=== PATIENT | male | born 1950 | race Caucasian/White ===

== ENCOUNTER 2016-12-06 13:50 | Inpatient (IN) | payer MEDICARE, OTHER ==
[2016-12-06 15:03] LABS: Add Diff/Slide Review? Slide Review Added; Comments Flag Yes; Hematocrit 39 % (42-52); Hemoglobin 12.3 g/dl (14.0-18.0); Mean Corpuscular HGB Conc 32 g/dl (31-36); Mean Corpuscular Hemoglobin 28 pg (27-31); Mean Corpuscular Volume 89 fL (80-94); Mean Platelet Volume 8 um3 (7.4-10.4); Red Blood Count 4.35 10^6/ul (4.0-5.4); Red Cell Distribution Width 16 % (10.5-15); White Blood Count 12.7 10^3/ul (3.5-10.8)
[2016-12-06 15:18] LABS: Albumin 3.4 g/dL (3.2-5.2); Calcium 9.2 mg/dL (8.6-10.3); EGFR African American 76.4 (>60); EGFR Non-African American 59.4 (>60); Globulin 3.2 g/dL (2-4); Potassium 4.2 mmol/L (3.5-5.0); Total Bilirubin 0.3 mg/dL (0.2-1.0); Total Protein 6.6 g/dL (6.4-8.9)
[2016-12-06 15:28] LABS: Troponin I 0.06 ng/mL (<0.04)
[2016-12-06] MEDS ORDERED: Aspirin EC TAB* 325 MG PO ONE (15:41)
--- NOTE | 2016-12-06 17:16 | RAD ---
INDICATION: Shortness of breath. COMPARISON: There are no prior studies available for comparison. TECHNIQUE: Dual-energy PA and lateral views of the chest were obtained. FINDINGS: The patient is status post anatomy. The heart is upper limits of normal in size. There is mild prominence of the interstitial markings. No significant focal infiltrate is seen. There is flattening of the diaphragms suggestive of chronic obstructive pulmonary disease. There is a nodular density which projects over the right midlung which appears to be least partially calcified measuring 1.1 cm in size. No pleural effusion is seen. IMPRESSION: 1. 1.1 CM PULMONARY NODULE. RECOMMEND A NONCONTRAST CT OF THE CHEST FOR FURTHER EVALUATION. 2. PROMINENCE OF THE INTERSTITIAL MARKINGS CONSISTENT WITH EITHER CHRONIC INTERSTITIAL CHANGE OR MILD CONGESTIVE HEART FAILURE. 3. FINDINGS SUGGESTIVE OF COPD.
[2016-12-06] MEDS ORDERED: Dextrose 50% Syringe 50 ML* 25 GM/50 ML SYRINGE IV PUSH PRN (17:20)
[2016-12-06] MEDS ORDERED: Furosemide IV* 10 MG/ML VIAL (40 MG) IV ONE (18:13)
[2016-12-06] MEDS: Insulin LISPRO* 1 UNITS UNIT SUBCUT SCH ×2 (19:14→19:21)
[2016-12-06] MEDS: Clopidogrel TAB* 75 MG PO SCH (19:21)
[2016-12-06] MEDS: Atorvastatin* 40 MG TAB PO SCH (19:21)
[2016-12-06] MEDS: Insulin GLARGINE(*) 1 UNITS UNIT SUBCUT SCH (20:55)
[2016-12-06] MEDS: guanFACINE TAB* 1 MG PO SCH (20:55)
[2016-12-06] MEDS: Carvedilol TAB* 25 MG PO SCH (20:55)
[2016-12-06] MEDS: Heparin VIAL(*) 5000 UNITS/ML VIAL (FIVE THOUSAND) SUBCUT SCH (20:56)
--- NOTE | 2016-12-07 04:40 | HP ---
HISTORY AND PHYSICAL: DATE OF ADMISSION: 12/06/16 CHIEF COMPLAINT: Shortness of breath. HISTORY OF PRESENT ILLNESS: The patient is a resident of [place], visiting his daughter. Mr. Vasquez is a 66-year-old male with a past medical history of morbid obesity , hypertension, CAD, status post CABG x2, JORDAN, on CPAP, diabetes, who presents to the hospital with shortness of breath that began this morning. The patient is up visiting from [place], has been here little over a month or so. Two weeks ago, he developed a productive cough and was diagnosed at Urgent Care with bronchitis. He received steroids and antibiotics with improvement in his symptoms, although still has a persistent productive cough at this time. However, overall he feels that he has been getting better. This morning, he woke up around 6 a.m. and felt short of breath, this was while on his CPAP machine, which is very unusual. Over the course in the morning, the shortness of breath persisted. He denies any chest pain. He states that when he stood up , he felt uneasy, but denies lightheadedness or dizziness. He went to Urgent Care and his blood pressure was 110/54, which he states is low for him. He is usually in the 130s to 140s. He states that this shortness of breath felt like a previous episode of pneumonia that he had in the past. The patient has not noticed any calf tenderness. No more swelling in his lower extremities than usual. Denies any recent tick bites or rash. No significant changes in medications recently. In the emergency department, the patient was found to have a mildly elevated troponin as well as EKG that showed Mobitz type 1 second- degree heart block. We were consulted to consider the patient for admission. PAST MEDICAL HISTORY: 1. Hypertension. 2. Diabetes. 3. Morbid obesity. 4. JORDAN, on CPAP. 5. CAD, status post CABG x2. 6. History of calcified fatty tissue in his right lung. PAST SURGICAL HISTORY: CABG x2. HOME MEDICATIONS: 1. [place]-3 fatty acids 900 mg by mouth daily. 2. Tresiba 58 units subcutaneous daily. 3. Insulin aspart 8 units subcutaneous with meals. 4. Jardiance 25 mg by mouth daily. 5. Trulicity 1.25 mg subcutaneous weekly. 6. Aspirin 325 mg by mouth nightly. 7. Metformin 1000 mg by mouth two times daily. 8. Ezetimibe 10 mg by mouth daily. 9. Plavix 75 mg by mouth nightly. 10. Guanfacine 2 mg by mouth at bedtime. 11. Atorvastatin 40 mg by mouth nightly. 12. Potassium chloride 20 mEq by mouth daily. 13. Amlodipine 10 mg by mouth daily. 14. Losartan 100 mg by mouth daily. 15. Lasix 40 mg by mouth daily. 16. Carvedilol 25 mg by mouth 3 times daily. ALLERGIES: The patient reports no known drug allergies. FAMILY HISTORY: The patient could not recall. SOCIAL HISTORY: The patient has never smoked cigarettes. Very rare alcohol use. No illicit drug use. Lives with his in [place]. REVIEW OF SYSTEMS: Negative except as noted in the HPI. PHYSICAL EXAMINATION GENERAL: The patient is pleasant, middle-aged, morbidly obese man sitting in bed in no apparent distress. VITAL SIGNS: On admission, temperature 97.8, heart rate of 54, respiratory rate of 16, O2 saturation 97% on room air, blood pressure 146/59. HEENT: Head normocephalic, atraumatic. Eyes: Pupils equal, round, and reactive to light and accommodation. Anicteric sclerae. ENT: Moist mucous membranes. No cervical adenopathy. LUNGS: Clear to auscultation bilaterally, although breath sounds are a bit diminished at the bases. CARDIOVASCULAR: Irregular rhythm. S1 and S2 present. No murmurs, gallops or rubs. ABDOMEN: Obese, soft, ventral hernia, nontender, nondistended. Bowel sounds are positive. EXTREMITIES: Patient has pitting edema to the knees bilaterally. NEURO: The patient is alert and oriented x3. No focal neurological deficits. SKIN: Warm, dry, and well perfused. No rashes noted. DIAGNOSTIC STUDIES/LAB DATA: White blood cell count of 12.7, hemoglobin of 12.3, hematocrit of 39, platelets 227. Sodium 139, potassium 4.2, chloride of 103, carbon dioxide of 29, BUN of 28, creatinine of 1.22, glucose of 185. Lactic acid of 1.6. LFTs within normal limits. Troponin of 0.06. EKG, personally reviewed, shows Mobitz type I second-degree AV block. There are no prior EKGs to compare to. No acute ST changes noted. Chest x-ray, personally reviewed, shows known right mid lung nodule, no clear infiltrates. ASSESSMENT AND PLAN: Shortness of breath, troponin elevation and second-degree AV block, Mobitz type 1, in a 66-year-old male with a past medical history of hypertension, diabetes, coronary artery disease, status post coronary artery bypass surgery x2, obstructive sleep apnea, on CPAP. 1. Shortness of breath. May be secondary to cardiac etiology particularly with the patient's heart block, which seems new. He states he has had last EKG in February that was normal, although it is unclear if this is specifically related to the chest pain. We will rule out ischemic causes by continuing to trend the patient's troponins. We will check TSH. We will also get an echocardiogram and a nuclear cardiac stress test in the morning. Spoke briefly with Dr. Singh, but did not formally consult. She recommended scaling back the patient's beta-jen a bit and we will decrease his mid-day dose to 12.5 mg of Coreg beginning tomorrow as he missed his dose today. We will continue for now on aspirin and Plavix. Chest x-ray did not show any specific signs of pneumonia, perhaps a bit of fluid overload. Will give an additional dose of Lasix through the IV, check BNP. White blood cell count is only minimally elevated. I do not think the patient requires any antibiotic therapy at this time. Deep venous thrombosis and pulmonary embolism seems unlikely this long after their trip. They did drive up with an RV, which the patient said he was ambulatory throughout the trip. The patient denies any recent tick bites and has no rashes. 2. Hypertension. Continue Coreg at above dosing, amlodipine, guanfacine, and home losartan. 3. Diabetes. The patient is on a number of non-formulary medications. We will put him on a reduced dose of Lantus at 30 units for now with sliding scale insulin with meals as he will be n.p.o. after midnight for stress test. 4. History of coronary artery disease. Continue beta-jen, aspirin, Plavix, and statin. 5. DVT prophylaxis. Heparin subcu. 6. Code status. The patient is a full code. TIME SPENT: Total time spent on this admission 45 minutes, with over half the time spent [id number] with the patient in counseling and coordinating care. [id number]/[facility] #: [id number] [facility]ITAL[facility]
[2016-12-07] MEDS: Heparin VIAL(*) 5000 UNITS/ML VIAL (FIVE THOUSAND) SUBCUT SCH ×3 (04:55→20:42)
[2016-12-07 05:27] LABS: Hematocrit 38 % (42-52); Hemoglobin 12.2 g/dl (14.0-18.0); Mean Corpuscular HGB Conc 32 g/dl (31-36); Mean Corpuscular Hemoglobin 29 pg (27-31); Mean Corpuscular Volume 89 fL (80-94); Mean Platelet Volume 8 um3 (7.4-10.4); Red Blood Count 4.27 10^6/ul (4.0-5.4); Red Cell Distribution Width 15 % (10.5-15)
[2016-12-07 05:46] LABS: BUN/Creatinine Ratio 24.1 (8-20); Calcium 8.9 mg/dL (8.6-10.3); EGFR African American 84.4 (>60); EGFR Non-African American 65.6 (>60); HDL Cholesterol 30.8 mg/dL; Potassium 3.7 mmol/L (3.5-5.0)
[2016-12-07 06:25] LABS: Troponin I 0.19 ng/mL (<0.04)
[2016-12-07] MEDS ORDERED: Perflutren Lipid Microsphere* 3 ML VIAL ONE (07:59)
--- NOTE | 2016-12-07 09:26 | ECHO ---
Patient: RANCHO OLIVARES [facility] Rec#: [id number] : 1950 Date: 12/07/2016 Age: 66y Height: 175.26 cm / 69.0 in Weight: 122.47 kg / 269.9 lbs Sex: M BSA: 2.35 Room#: 443 Admit Date#: 12/06/2016 Type: Inpatient Referring: VANESSA IRVING MD Reading: Jason Herrera MD Supervisor [employer] Handling: Dodie PetersenRDCS,RDMS Transthoracic Echocardiogram Indication: Heart block BP: 114/54 HR: 72 Rhythm: NSR Findings History: CAD, CABGx2, HTN, DM, JORDAN Technical Comments: The study quality is fair. The study is technically limited due to poor acoustic windows. Completed 0840 Left Ventricle: The left ventricular chamber size is normal. Mild concentric left ventricular hypertrophy is observed. There is a focal wall motion abnormality present. There is mildly decreased left ventricular systolic function. The estimated ejection fraction is 45-50%. Abnormal left ventricular diastolic function is observed. The mid anteroseptal, mid anterior, and apical anterior wall segments are hypokinetic (score 2). Overall wallmotion score index is 2.00 Left Atrium: The left atrium is mild to moderately dilated. Right Ventricle: The right ventricular chamber size and systolic function are within normal limits. The right ventricle wall thickness is mildly increased. Right Atrium: The right atrium is mildly dilated. Aortic Valve: The aortic valve is trileaflet. The aortic valve leaflets are mildly thickened. There is aortic annular calcification. There is trace to mild aortic regurgitation. There is no evidence of aortic stenosis. Mitral Valve: There is mitral annular calcification. The mitral valve leaflets are mildly thickened. There is moderate mitral regurgitation. There is mild mitral stenosis. Tricuspid Valve: The tricuspid valve leaflets are normal. There is mild to moderate tricuspid regurgitation. There is evidence of mild pulmonary hypertension. Pulmonic Valve: The pulmonic valve structure is not well visualized. There is no evidence of pulmonic regurgitation. Pericardium: There is no significant pericardial effusion. Aorta: There is mild dilatation of the ascending aorta. There is no dilatation of the aortic arch. There is mild dilatation of the aortic root. Pulmonary Artery: The main pulmonary artery is not well visualized. Venous: The inferior vena cava is not visualized. Contrast: Definity was used to optimize study. A total of 4 ml was used Summary: There was not any prior study for comparison. Conclusions Mild concentric left ventricular hypertrophy is observed. The estimated ejection fraction is 45-50%. There is mildly decreased left ventricular systolic function. The mid anteroseptal, mid anterior, and apical anterior wall segments are hypokinetic (score 2). The right ventricular chamber size and systolic function are within normal limits. The aortic valve leaflets are mildly thickened. There is trace to mild aortic regurgitation. There is moderate mitral regurgitation. There is mild to moderate tricuspid regurgitation. There is evidence of mild pulmonary hypertension. There is no significant pericardial effusion. Measurements Name Value Normal Range RVIDd (AP) 2D 2.8 cm (0.9 - 2.6) RVDdMajor (2D) 4 cm (2.2 - 4.4) RAd ISD 4CH 4.8 cm (3.4 - 4.9) RA (A4C)W 4.8 cm (2.9 - 4.6) IVSd (2D) 1.2 cm (0.6 - 1) LVPWd (2D) 1.3 cm (0.6 - 1) LVIDd (2D) 5.3 cm (3.6 - 5.4) LVIDs (2D) 4.1 cm - LV FS (2D) 23 % (25 - 45) Aortic Annulus 2 cm (1.4 - 2.6) Ao root diameter (2D) 4.1 cm (2.1 - 3.5) Ascending Ao 3.7 cm (2.1 - 3.4) Aortic arch 2.7 cm (1.8 - 3.4) LA dimension (AP) 2D 4.5 cm (2.3 - 3.8) LAd ISD 4CH 5.3 cm (2.9 - 5.3) LA ISD 4CH W 4.5 cm (2.5 - 4.5) Name Value Normal Range LA ESV SP 4CH (A/L) 121.84 ml - LA ESV SP 2CH (A/L) 79.28 ml - LA ESV BP (A/L) 102.62 ml - LA ESV BP (A/L) index 44 ml/m2 - LA ESV SP 4CH (MOD) 114.96 ml - LA ESV SP 2CH (MOD) 75.69 ml - Name Value Normal Range MV E-wave Vmax 1.3 m/sec - MV deceleration time 177 msec - MV A-wave Vmax 0.4 m/sec - MV E:A ratio 3.3 ratio - LV septal e' Vmax 0.05 m/sec - LV lateral e' Vmax 0.06 m/sec - LV E:e' septal ratio 26 ratio - LV E:e' lateral ratio 22 ratio - Name Value Normal Range AV Vmax 1.3 m/sec - AV VTI 25.4 cm - AV peak gradient 7 mmHg - AV mean gradient 3.3 mmHg - LVOT Vmax 0.9 m/sec - LVOT VTI 18.4 cm - LVOT peak gradient 3.2 mmHg - LVOT mean gradient 1.6 mmHg - CHHAYA Vmax 0.7 m/sec - Name Value Normal Range MV Vmax 1.4 m/sec - MV VTI 30.4 cm - MV peak gradient 8 mmHg - MV mean gradient 2.8 mmHg - MV PHT 62 msec - MR Vmax 5.6 m/sec - MR VTI 186 cm - MR flow (PISA) 82.3 ml/sec - MR ERO 14 cm2 - MR PISA radius 0.6 cm - MR alias Vmax 34 cm/sec - MVA (PHT) 3.5 cm2 - Name Value Normal Range TR Vmax 3.1 m/sec - TR peak gradient 38 mmHg - RAP 3 mmHg - RVSP 41 mmHg - Name Value Normal Range PV Vmax 0.8 m/sec - PV peak gradient 2.6 mmHg - Wallmotion BAS Not Seen BA Not Seen BAL Not Seen JAIR Not Seen BI Not Seen BIS Not Seen MAS Hypokinetic MA Hypokinetic MAL Not Seen MIL Not Seen IL Not Seen MIS Not Seen Not Seen AA Hypokinetic AL Not Seen AI Not Seen APEX Not Seen
--- NOTE | 2016-12-07 10:04 | ED ---
Sakina Moore Thomas, scribed for Alvin Watters MD on 12/06/16 at 1534 . Shortness of Breath - HPI Summary HPI Summary: The pt is a 66 y/o M presenting to the ED c/o SOB that began a few days ago but woke up with significantly worsened SOB this AM at 05:00 when he woke up. His SOB is worsened when he is standing and seems to be resolved when he is seated. Pt additionally c/o cough (onset 1 month), nausea (this AM, resolved in ED), insecure on my feet. Pt denies CP and vomiting. PMHx: DM, PNA, HTN, hernia, sleep apnea, ragweed allergy. PSHx: CABG x2 (1997, 2005). SHx: no smoking, occasional alcohol, no illicit drugs. FHx: HTN. A month ago, he was diagnosed with bronchitis and prescribed a course of antibiotics. He finished this course, but a cough lingered. He normally lives in [place] and is visiting his daughter in [place] for the next month. - History of Current Complaint Chief Complaint: EDShortnessOfBreath Time Seen by Provider: 12/06/16 15:30 Hx Obtained From: Patient Onset/Duration: Gradual Onset, Lasting Days - a few days, Still Present, Worse Since - this AM at 05:00 Dyspnea At: Exertion Aggrevating Factors: Movement - especially standing up Alleviating Factors: Nothing Associated Signs & Symptoms: Cough (Nonproductive) - Allergy/Home Medications Allergies/Adverse Reactions: Allergies Allergy/AdvReac Type Severity Reaction Status Date / Time No Known Allergies Allergy Verified 12/06/16 15:41 Home Medications: Home Medications Aspirin TAB* [Aspirin 325 MG TAB*] 325 mg PO QPM 12/06/16 [History Confirmed ] Atorvastatin* [Lipitor*] 40 mg PO QPM 12/06/16 [History Confirmed 12/06/16] Carvedilol TAB* [Coreg TAB*] 25 mg PO TID 12/06/16 [History Confirmed 12/06/16] Clopidogrel TAB* [Plavix TAB*] 75 mg PO QPM 12/06/16 [History Confirmed 12/06/16 ] Dulaglutide [Trulicity] 1.25 mg SC SEE INSTRUCTIONS 12/06/16 [History Confirmed 12/06/16] Empagliflozin [Jardiance] 25 mg PO DAILY 12/06/16 [History Confirmed 12/06/16] Ezetimibe TAB* [Zetia TAB*] 10 mg PO DAILY 12/06/16 [History Confirmed 12/06/16] Furosemide TAB* [Lasix TAB*] 40 mg PO DAILY 12/06/16 [History Confirmed 12/06/16 ] Insulin Aspart [Novolog Flexpen] 8 unit SC SEE INSTRUCTIONS 12/06/16 [History Confirmed 12/06/16] Insulin Degludec [Tresiba Flextouch] 58 unit SC DAILY 12/06/16 [History Confirmed 12/06/16] Losartan TAB* [Cozaar TAB*] 100 mg PO DAILY 12/06/16 [History Confirmed 12/06/16 ] [place]-3 Fatty Acids [Fish Oil] 900 mg PO DAILY 12/06/16 [History Confirmed 12/06] Potassium Chlor TAB* [Klor Con ER TAB*] 20 meq PO DAILY 12/06/16 [History Confirmed 12/06/16] amLODIPine TAB* [Norvasc 5 mg TAB*] 10 mg PO DAILY 12/06/16 [History Confirmed 12/06/16] guanFACINE TAB* [Tenex TAB*] 2 mg PO BEDTIME 12/06/16 [History Confirmed ] metFORMIN* [Glucophage 1000 MG TAB *] 1,000 mg PO BID 12/06/16 [History Confirmed 12/06/16] PMH/Surg Hx/FS Hx/Imm Hx Previously Healthy: No Endocrine/Hematology History: Reports: Hx Diabetes, Other Endocrine/ Hematological Disorders - Hx ragweed allergy Cardiovascular History: Reports: Hx Hypertension Respiratory History: Reports: Hx Pneumonia, Hx Sleep Apnea GI History: Reports: Other GI Disorders - Hx umbilical hernia - Surgical History Surgery Procedure, Year, and Place: CABG x2 (1997, 2005) Infectious Disease History: No Infectious Disease History: Denies: Traveled Outside the [place] in Last 30 Days - Family History Known Family History: Positive: Hypertension - Social History Alcohol Use: Occasionally Substance Use Type: Reports: None Hx Tobacco Use: No Review of Systems Constitutional: Negative Negative: Fever Eyes: Negative ENT: Negative Cardiovascular: Negative Negative: Chest Pain Positive: Shortness Of Breath - onset a few days, worsened this AM at 05:00, worsened with exertion and standing, Cough - a month Positive: Nausea - this AM, resolved in the ED. Negative: Vomiting Genitourinary: Negative Musculoskeletal: Negative Skin: Negative Neurological: Other - POS: "insecure on my feet" Psychological: Normal All Other Systems Reviewed And Are Negative: Yes Physical Exam - Summary Physical Exam Summary: VITAL SIGNS: Reviewed. GENERAL: ~Patient is a well-developed and nourished obese male who is lying comfortable in the stretcher. ~Patient is not in any acute respiratory distress. HEAD AND FACE: No signs of trauma. ~No ecchymosis, hematomas or skull depressions. No sinus tenderness. EYES: PERRLA, EOMI x 2, No injected conjunctiva, no nystagmus. EARS: Hearing grossly intact. Ear canals and tympanic membranes are within normal limits. MOUTH: Oropharynx within normal limits. NECK: Supple, trachea is midline, no adenopathy, no JVD, no carotid bruit, no c- spine tenderness, neck with full ROM. CHEST: Symmetric, no tenderness at palpation LUNGS: Clear to auscultation bilaterally. No wheezing or crackles. CVS: Regular rate and rhythm, S1 and S2 present, no murmurs or gallops appreciated. ABDOMEN: Umbilical hernia. Soft, non-tender. No signs of distention. No rebound no guarding, and no masses palpated. Bowel sounds are normal. EXTREMITIES: 1+ edema. FROM in all major joints, no cyanosis or clubbing. NEURO: Alert and oriented x 3. No acute neurological deficits. Speech is normal and follows commands. SKIN: Dry and warm Triage Information Reviewed: Yes Vital Signs On Initial Exam: Initial Vitals Temp Pulse Resp BP Pulse Ox 97.8 F 54 16 146/59 97 12/06/16 14:01 12/06/16 14:01 12/06/16 14:01 12/06/16 14:01 12/06/16 14:01 Vital Signs Reviewed: Yes Diagnostics - Vital Signs Vital Signs Temp Pulse Resp BP Pulse Ox 12/06/16 15:21 19 133/48 12/06/16 14:01 97.8 F 54 16 146/59 97 - Laboratory Lab Results: Lab Results 12/06/16 12/06/16 12/06/16 Range/Units 14:55 14:55 14:55 WBC 12.7 H (3.5-10.8) 10^3/ul RBC 4.35 (4.0-5.4) 10^6/ul Hgb 12.3 L (14.0-18.0) g/dl Hct 39 L (42-52) % MCV 89 (80-94) fL MCH 28 (27-31) pg MCHC 32 (31-36) g/dl RDW 16 H (10.5-15) % Plt Count 227 (150-450) 10^3/ul MPV 8 (7.4-10.4) um3 Neut % (Auto) 74.1 (38-83) % Lymph % (Auto) 15.8 L (25-47) % Bradford % (Auto) 8.1 (1-9) % Eos % (Auto) 1.3 (0-6) % Baso % (Auto) 0.7 (0-2) % Absolute Neuts (auto) 9.4 H (1.5-7.7) 10^3/ul Absolute Lymphs (auto) 2.0 (1.0-4.8) 10^3/ul Absolute Monos (auto) 1.0 H (0-0.8) 10^3/ul Absolute Eos (auto) 0.2 (0-0.6) 10^3/ul Absolute Basos (auto) 0.1 (0-0.2) 10^3/ul Absolute Nucleated RBC 0.01 10^3/ul Nucleated RBC % 0.1 Sodium 139 (133-145) mmol/L Potassium 4.2 (3.5-5.0) mmol/L Chloride 103 (101-111) mmol/L Carbon Dioxide 29 (22-32) mmol/L Anion Gap 7 (2-11) mmol/L BUN 28 H (6-24) mg/dL Creatinine 1.22 H (0.67-1.17) mg/dL Est GFR ( Amer) 76.4 (>60) Est GFR (Non-Af Amer) 59.4 (>60) BUN/Creatinine Ratio 23.0 H (8-20) Glucose 185 H (70-100) mg/dL Lactic Acid 1.6 (0.5-2.0) mmol/L Calcium 9.2 (8.6-10.3) mg/dL Total Bilirubin 0.30 (0.2-1.0) mg/dL AST 14 (13-39) U/L ALT 16 (7-52) U/L Alkaline Phosphatase 71 (34-104) U/L Troponin I 0.06 H* (<0.04) ng/mL Total Protein 6.6 (6.4-8.9) g/dL Albumin 3.4 (3.2-5.2) g/dL Globulin 3.2 (2-4) g/dL Albumin/Globulin Ratio 1.1 (1-3) Result Diagrams: 12/07/16 05:10 12/07/16 05:10 Lab Statement: Any lab studies that have been ordered have been reviewed, and results considered in the medical decision making process. - EKG 14:27 Cardiac Rate: Bradycardia - 42 BPM EKG Interpretation: Second degree block which is a Wenkebach. Course/Dx - Course Assessment/Plan: The pt is a 66 y/o M presenting to the ED c/o SOB that began a few days ago but woke up with significantly worsened SOB this AM at 05:00 when he woke up. His SOB is worsened when he is standing and seems to be resolved when he is seated. Pt additionally c/o cough (onset 1 month), nausea ( this AM, resolved in ED), insecure on my feet. Pt denies CP and vomiting. PMHx : DM, PNA, HTN, umbilical hernia, sleep apnea, ragweed allergy. PSHx: CABG x2 ( 1997, 2005). SHx: no smoking, occasional alcohol, no illicit drugs. FHx: HTN. A month ago, he was diagnosed with bronchitis and prescribed a course of antibiotics. He finished this course, but a cough lingered. He normally lives in [place] and is visiting his daughter in [place] for the next month. Test results show WBC 12.7 with slight anemia. The patient has renal failure, hyperglycemia to 185, troponin to 0.06. An EKG shows a second degree block which is a Wenkebach. CXR revealed 1. 1.1 CM PULMONARY NODULE. RECOMMEND A NONCONTRAST CT OF THE CHEST FOR FURTHER. EVALUATION. 2. PROMINENCE OF THE INTERSTITIAL MARKINGS CONSISTENT WITH EITHER CHRONIC INTERSTITIAL. CHANGE OR MILD CONGESTIVE HEART FAILURE. 3. FINDINGS SUGGESTIVE OF COPD. The patient reports that he has never had abnormal EKGs despite multiple CABGs. At this point, the patient is stable and does not complain of any pain or SOB. I discussed care with Dr. Miles, who accepts the patient for admission. The patient is hemodynamically stable and alert and orientated x3. - Diagnoses Differential Diagnosis/HQI/PQRI: Positive: CHF, HI Provider Diagnoses: Second degree AV block, Dyspnea on exertion - Physician Notifications Discussed Care of Patient With: Romaine Miles Time Discussed With Above Provider: 15:49 Instructed by Provider To: Other - Discussed patient care. Dr. Miles, hospitalist, will accept the patient for admission. Discharge - Discharge Plan Condition: Fair Disposition: ADMITTED TO [facility] The documentation as recorded by the Sakina ibarra Thomas accurately reflects the service I personally performed and the decisions made by me, Alvin Watters MD.
[2016-12-07] MEDS: Losartan TAB* 25 MG PO SCH (11:18)
[2016-12-07] MEDS: Ezetimibe TAB* 10 MG PO SCH (11:19)
[2016-12-07] MEDS: Furosemide TAB* 40 MG PO SCH (11:19)
[2016-12-07] MEDS: Carvedilol TAB* 25 MG PO SCH ×2 (11:19→20:41)
[2016-12-07] MEDS: amLODIPine TAB* 5 MG PO SCH (11:19)
[2016-12-07] MEDS: Potassium Chlor TAB* 10 MEQ TAB.ER PO SCH (11:20)
[2016-12-07] MEDS: Insulin LISPRO* 1 UNITS UNIT SUBCUT SCH ×6 (11:39→17:24)
[2016-12-07] MEDS: OMEGA-3 FATTY ACIDS (NF) 1,000 MG CAP PO SCH (11:41)
--- NOTE | 2016-12-07 13:30 | PN ---
Subjective Date of Service: 12/07/16 Interval History: No more SOB since admission. No new c/o. He always sleeps in a recliner, has not changed the amount of head elevation. He brought his CPAP with him and was using it when I entered his room after lunch. He denies dietary indiscretion. He does not weigh himelf. He has not noticed any edema. Objective Active Medications: Amlodipine Besylate (Norvasc Tab*) 10 mg PO DAILY [facility] Last Admin: 12/07/16 11:19 Dose: 10 mg Aspirin (Aspirin Tab*) 325 mg PO QPM [facility] Atorvastatin Calcium (Lipitor*) 40 mg PO QPM [facility] Last Admin: 12/06/16 19:21 Dose: 40 mg Carvedilol (Coreg Tab*) 25 mg PO BID [facility] Last Admin: 12/07/16 11:19 Dose: 25 mg Carvedilol (Coreg Tab*) 12.5 mg PO 1400 [facility] Clopidogrel Bisulfate (Plavix Tab*) 75 mg PO QPM [facility] Last Admin: 12/06/16 19:21 Dose: 75 mg Dextrose (D50w Syringe 50 Ml*) 12.5 gm IV PUSH .FOR FS < 60 - SS PRN PRN Reason: FS < 60 Ezetimibe (Zetia Tab*) 10 mg PO DAILY [facility] Last Admin: 12/07/16 11:19 Dose: 10 mg Fish Oil (Fish Oil (Nf)) 900 mg PO DAILY [facility] PRN Reason: Protocol Last Admin: 12/07/16 11:41 Dose: Not Given Furosemide (Lasix Tab*) 40 mg PO DAILY [facility] Last Admin: 12/07/16 11:19 Dose: 40 mg Guanfacine HCl (Tenex Tab*) 2 mg PO BEDTIME [facility] Last Admin: 12/06/16 20:55 Dose: 2 mg Heparin Sodium (Porcine) (Heparin Vial(*)) 5,000 units SUBCUT Q8HR [facility] Last Admin: 12/07/16 04:55 Dose: 5,000 units Insulin Glargine (Lantus(*)) 30 units SUBCUT Q24H [facility] Last Admin: 12/06/16 20:55 Dose: 30 unit Insulin Human Lispro (Humalog*) 0 - 15 units SUBCUT AC [facility] PRN Reason: Protocol Last Admin: 12/07/16 11:39 Dose: Not Given Insulin Human Lispro (Humalog*) 0 units SUBCUT [facility] PRN Reason: Protocol Last Admin: 12/07/16 11:39 Dose: Not Given Losartan Potassium (Cozaar Tab*) 100 mg PO DAILY [facility] Last Admin: 12/07/16 11:18 Dose: 100 mg Potassium Chloride (Klor Con Er Tab*) 20 meq PO DAILY [facility] Last Admin: 12/07/16 11:20 Dose: 20 meq Vital Signs 12/06/16 12/06/16 12/06/16 17:05 17:15 17:30 Temperature Pulse Rate 80 56 105 Respiratory 27 17 18 Rate Blood Pressure 115/48 122/46 (mmHg) O2 Sat by Pulse 94 93 92 Oximetry 12/06/16 12/06/16 12/06/16 18:00 18:25 20:20 Temperature 98.5 F Pulse Rate 76 47 72 Respiratory 18 22 Rate Blood Pressure 112/48 132/54 (mmHg) O2 Sat by Pulse 94 98 Oximetry 12/06/16 12/07/16 12/07/16 20:22 00:09 03:43 Temperature 98.6 F 98.1 F 98.5 F Pulse Rate 132 39 71 Respiratory 16 20 16 Rate Blood Pressure 110/50 112/53 114/54 (mmHg) O2 Sat by Pulse 94 93 92 Oximetry 12/07/16 12/07/16 07:11 11:16 Temperature 97.5 F 98.0 F Pulse Rate 73 69 Respiratory 16 14 Rate Blood Pressure 120/61 128/63 (mmHg) O2 Sat by Pulse 94 94 Oximetry Oxygen Devices in Use Now: CPAP/BiPAP Appearance: Alert, in recliner chair. In good spirits. Looks comfortable. Ears/Nose/Mouth/Throat: Clear Oropharnyx, Mucous Membranes Moist Neck: NL Appearance and Movements; NL JVP, No Thyroid Enlargement, Masses Respiratory: Symmetrical Chest Expansion and Respiratory Effort, Clear to Auscultation, Clear to Percussion Abdominal: NL Sounds; No Tenderness; No Distention, No Hepatosplenomegaly, - Extremities: No Clubbing, Cyanosis, - - support hose in place Skin: No Rash or Ulcers, No Nodules or Sclerosis Neurological: Alert and Oriented x 3, NL Sensation Result Diagrams: 12/07/16 05:10 12/07/16 05:10 Additional Lab and Data: Lab Results 12/06/16 12/06/16 12/06/16 Range/Units 14:55 14:55 14:55 WBC 12.7 H (3.5-10.8) 10^3/ul RBC 4.35 (4.0-5.4) 10^6/ul Hgb 12.3 L (14.0-18.0) g/dl Hct 39 L (42-52) % MCV 89 (80-94) fL MCH 28 (27-31) pg MCHC 32 (31-36) g/dl RDW 16 H (10.5-15) % Plt Count 227 (150-450) 10^3/ul MPV 8 (7.4-10.4) um3 Neut % (Auto) 74.1 (38-83) % Lymph % (Auto) 15.8 L (25-47) % [place] % (Auto) 8.1 (1-9) % Eos % (Auto) 1.3 (0-6) % Baso % (Auto) 0.7 (0-2) % Absolute Neuts (auto) 9.4 H (1.5-7.7) 10^3/ul Absolute Lymphs (auto) 2.0 (1.0-4.8) 10^3/ul Absolute Monos (auto) 1.0 H (0-0.8) 10^3/ul Absolute Eos (auto) 0.2 (0-0.6) 10^3/ul Absolute Basos (auto) 0.1 (0-0.2) 10^3/ul Absolute Nucleated RBC 0.01 10^3/ul Nucleated RBC % 0.1 Sodium 139 (133-145) mmol/L Potassium 4.2 (3.5-5.0) mmol/L Chloride 103 (101-111) mmol/L Carbon Dioxide 29 (22-32) mmol/L Anion Gap 7 (2-11) mmol/L BUN 28 H (6-24) mg/dL Creatinine 1.22 H (0.67-1.17) mg/dL Est GFR ( Amer) 76.4 (>60) Est GFR (Non-Af Amer) 59.4 (>60) BUN/Creatinine Ratio 23.0 H (8-20) Glucose 185 H (70-100) mg/dL Lactic Acid 1.6 (0.5-2.0) mmol/L Calcium 9.2 (8.6-10.3) mg/dL Total Bilirubin 0.30 (0.2-1.0) mg/dL AST 14 (13-39) U/L ALT 16 (7-52) U/L Alkaline Phosphatase 71 (34-104) U/L Troponin I 0.06 H* (<0.04) ng/mL Total Protein 6.6 (6.4-8.9) g/dL Albumin 3.4 (3.2-5.2) g/dL Globulin 3.2 (2-4) g/dL Albumin/Globulin Ratio 1.1 (1-3) Assess/Plan/Problems-Billing Assessment: - Patient Problems (1) Elevated troponin Current Visit: Yes Status: Acute Code(s): R74.8 - ABNORMAL LEVELS OF OTHER SERUM ENZYMES SNOMED Code(s): 895816310 Comment: Cardiology consultation requested. (2) Ischemic cardiomyopathy Current Visit: Yes Status: Acute Code(s): I25.5 - ISCHEMIC CARDIOMYOPATHY SNOMED Code(s): 049672363 Comment: LVEF 45-50% on echo 12/06/16. Patient has not seen a investigation manager for many years. Note BNP 853 on 12/06/16. Continue clopidogrel, ASA, carvedilol , statin, furosemide. (3) Diabetes Current Visit: Yes Status: Acute Code(s): E11.9 - TYPE 2 DIABETES MELLITUS WITHOUT COMPLICATIONS SNOMED Code(s): 63623796 Comment: Continue glargine insulin, Lispro while in the hospital. (4) HTN (hypertension) Current Visit: Yes Status: Acute Code(s): I10 - ESSENTIAL (PRIMARY) HYPERTENSION SNOMED Code(s): 71523873 Comment: Continue losartan, amlodipine, furosemide, carvedilol.
[2016-12-07] MEDS: Carvedilol TAB* 6.25 MG PO SCH (14:40)
[2016-12-07] MEDS: Aspirin TAB* 325 MG PO SCH ×3 (18:18→20:42)
[2016-12-07] MEDS: Atorvastatin* 40 MG TAB PO SCH (18:18)
[2016-12-07] MEDS: Clopidogrel TAB* 75 MG PO SCH (18:18)
[2016-12-07] MEDS: guanFACINE TAB* 1 MG PO SCH (20:42)
[2016-12-07] MEDS: Insulin GLARGINE(*) 1 UNITS UNIT SUBCUT SCH (20:48)
[2016-12-07] MEDS ORDERED: Insulin LISPRO* 1 UNITS UNIT SUBCUT ONE (21:00)
[2016-12-08] MEDS: Heparin VIAL(*) 5000 UNITS/ML VIAL (FIVE THOUSAND) SUBCUT SCH ×3 (05:58→21:55)
[2016-12-08] MEDS: Insulin LISPRO* 1 UNITS UNIT SUBCUT SCH ×6 (09:09→17:33)
[2016-12-08] MEDS ORDERED: Regadenoson* 0.4 MG/5 ML SYRINGE ONE (10:18)
[2016-12-08] MEDS: Losartan TAB* 25 MG PO SCH (14:13)
[2016-12-08] MEDS: Furosemide TAB* 40 MG PO SCH (14:14)
[2016-12-08] MEDS: Potassium Chlor TAB* 10 MEQ TAB.ER PO SCH (14:14)
[2016-12-08] MEDS: Ezetimibe TAB* 10 MG PO SCH (14:14)
[2016-12-08] MEDS: amLODIPine TAB* 5 MG PO SCH (14:14)
[2016-12-08] MEDS: OMEGA-3 FATTY ACIDS (NF) 1,000 MG CAP PO SCH (14:15)
--- NOTE | 2016-12-08 14:20 | PN ---
Subjective Date of Service: 12/08/16 Interval History: No new c/o. Slept well last night, in recliner as usual No chest pain. Objective Active Medications: Amlodipine Besylate (Norvasc Tab*) 10 mg PO DAILY [facility] Last Admin: 12/08/16 14:14 Dose: 10 mg Aspirin (Aspirin Tab*) 325 mg PO BEDTIME [facility] Last Admin: 12/07/16 20:42 Dose: 325 mg Atorvastatin Calcium (Lipitor*) 40 mg PO QPM [facility] Last Admin: 12/07/16 18:18 Dose: 40 mg Carvedilol (Coreg Tab*) 25 mg PO BID [facility] Last Admin: 12/07/16 20:41 Dose: 25 mg Carvedilol (Coreg Tab*) 12.5 mg PO 1400 [facility] Last Admin: 12/07/16 14:40 Dose: 12.5 mg Clopidogrel Bisulfate (Plavix Tab*) 75 mg PO QPM [facility] Last Admin: 12/07/16 18:18 Dose: 75 mg Dextrose (D50w Syringe 50 Ml*) 12.5 gm IV PUSH .FOR FS < 60 - SS PRN PRN Reason: FS < 60 Ezetimibe (Zetia Tab*) 10 mg PO DAILY [facility] Last Admin: 12/08/16 14:14 Dose: 10 mg Fish Oil (Fish Oil (Nf)) 900 mg PO DAILY [facility] PRN Reason: Protocol Last Admin: 12/08/16 14:15 Dose: Not Given Furosemide (Lasix Tab*) 40 mg PO DAILY [facility] Last Admin: 12/08/16 14:14 Dose: 40 mg Guanfacine HCl (Tenex Tab*) 2 mg PO BEDTIME [facility] Last Admin: 12/07/16 20:42 Dose: 2 mg Heparin Sodium (Porcine) (Heparin Vial(*)) 5,000 units SUBCUT Q8HR [facility] Last Admin: 12/08/16 14:04 Dose: Not Given Insulin Glargine (Lantus(*)) 35 units SUBCUT Q24H [facility] Insulin Human Lispro (Humalog*) 0 - 15 units SUBCUT AC [facility] PRN Reason: Protocol Last Admin: 12/08/16 13:46 Dose: Not Given Insulin Human Lispro (Humalog*) 0 units SUBCUT AC [facility] PRN Reason: Protocol Last Admin: 12/08/16 09:09 Dose: Not Given Losartan Potassium (Cozaar Tab*) 100 mg PO DAILY [facility] Last Admin: 12/08/16 14:13 Dose: 100 mg Non-Formulary Medication (Dulaglutide [Trulicity]) 1.5 mg SC SEE INSTRUCTIONS [facility] Potassium Chloride (Klor Con Er Tab*) 20 meq PO DAILY [facility] Last Admin: 12/08/16 14:14 Dose: 20 meq Vital Signs 12/07/16 12/07/16 12/07/16 15:59 19:54 23:34 Temperature 97.3 F 98.8 F 98.1 F Pulse Rate 73 76 74 Respiratory 16 20 20 Rate Blood Pressure 132/70 121/62 114/57 (mmHg) O2 Sat by Pulse 97 96 96 Oximetry 12/08/16 12/08/16 12/08/16 04:13 04:20 07:16 Temperature 97.0 F 97.7 F Pulse Rate 63 62 65 Respiratory 16 16 16 Rate Blood Pressure 120/62 116/62 119/64 (mmHg) O2 Sat by Pulse 96 95 97 Oximetry 12/08/16 13:06 Temperature 97.6 F Pulse Rate 65 Respiratory 18 Rate Blood Pressure 131/65 (mmHg) O2 Sat by Pulse 96 Oximetry Oxygen Devices in Use Now: None Appearance: Alert, in a chair. In good spirits. Looks comfortable. Eyes: No Scleral Icterus Neck: NL Appearance and Movements; NL JVP, No Thyroid Enlargement, Masses Respiratory: Symmetrical Chest Expansion and Respiratory Effort, Clear to Auscultation, Clear to Percussion Cardiovascular: NL Sounds; No Murmurs; No JVD, RRR, No Edema, - Extremities: No Clubbing, Cyanosis, - - support hose in place Skin: No Rash or Ulcers, No Nodules or Sclerosis Neurological: Alert and Oriented x 3, NL Sensation Result Diagrams: 12/07/16 05:10 12/07/16 05:10 Additional Lab and Data: Lab Results 12/06/16 12/06/16 12/06/16 Range/Units 14:55 14:55 14:55 WBC 12.7 H (3.5-10.8) 10^3/ul RBC 4.35 (4.0-5.4) 10^6/ul Hgb 12.3 L (14.0-18.0) g/dl Hct 39 L (42-52) % MCV 89 (80-94) fL MCH 28 (27-31) pg MCHC 32 (31-36) g/dl RDW 16 H (10.5-15) % Plt Count 227 (150-450) 10^3/ul MPV 8 (7.4-10.4) um3 Neut % (Auto) 74.1 (38-83) % Lymph % (Auto) 15.8 L (25-47) % [place] % (Auto) 8.1 (1-9) % Eos % (Auto) 1.3 (0-6) % Baso % (Auto) 0.7 (0-2) % Absolute Neuts (auto) 9.4 H (1.5-7.7) 10^3/ul Absolute Lymphs (auto) 2.0 (1.0-4.8) 10^3/ul Absolute Monos (auto) 1.0 H (0-0.8) 10^3/ul Absolute Eos (auto) 0.2 (0-0.6) 10^3/ul Absolute Basos (auto) 0.1 (0-0.2) 10^3/ul Absolute Nucleated RBC 0.01 10^3/ul Nucleated RBC % 0.1 Sodium 139 (133-145) mmol/L Potassium 4.2 (3.5-5.0) mmol/L Chloride 103 (101-111) mmol/L Carbon Dioxide 29 (22-32) mmol/L Anion Gap 7 (2-11) mmol/L BUN 28 H (6-24) mg/dL Creatinine 1.22 H (0.67-1.17) mg/dL Est GFR ( Amer) 76.4 (>60) Est GFR (Non-Af Amer) 59.4 (>60) BUN/Creatinine Ratio 23.0 H (8-20) Glucose 185 H (70-100) mg/dL Lactic Acid 1.6 (0.5-2.0) mmol/L Calcium 9.2 (8.6-10.3) mg/dL Total Bilirubin 0.30 (0.2-1.0) mg/dL AST 14 (13-39) U/L ALT 16 (7-52) U/L Alkaline Phosphatase 71 (34-104) U/L Troponin I 0.06 H* (<0.04) ng/mL Total Protein 6.6 (6.4-8.9) g/dL Albumin 3.4 (3.2-5.2) g/dL Globulin 3.2 (2-4) g/dL Albumin/Globulin Ratio 1.1 (1-3) Assess/Plan/Problems-Billing Assessment: - Patient Problems (1) Elevated troponin Current Visit: Yes Status: Acute Code(s): R74.8 - ABNORMAL LEVELS OF OTHER SERUM ENZYMES SNOMED Code(s): 426393698 Comment: Discussed with Dr. Herrera. ? anginal equivalent. Second part of nuclear stress test 12/09. (2) Ischemic cardiomyopathy Current Visit: Yes Status: Acute Code(s): I25.5 - ISCHEMIC CARDIOMYOPATHY SNOMED Code(s): 138931025 Comment: LVEF 45-50% on echo 12/06/16. Patient has not seen a irrigator overhead for many years. Note BNP 853 on 12/06/16. Continue clopidogrel, ASA, carvedilol , statin, furosemide. (3) Diabetes Current Visit: Yes Status: Acute Code(s): E11.9 - TYPE 2 DIABETES MELLITUS WITHOUT COMPLICATIONS SNOMED Code(s): 44171496 Comment: Continue glargine insulin, Lispro while in the hospital. Increase Glargne to 35, start 12/08 1414 hrs. Pt takes 58 U long-acting inuslin in AM at home. (4) HTN (hypertension) Current Visit: Yes Status: Acute Code(s): I10 - ESSENTIAL (PRIMARY) HYPERTENSION SNOMED Code(s): 90436973 Comment: Continue losartan, amlodipine, furosemide, carvedilol.
[2016-12-08] MEDS: Carvedilol TAB* 25 MG PO SCH ×2 (14:30→21:20)
--- NOTE | 2016-12-08 15:10 | CONS ---
CARDIAC CONSULTATION: DATE OF CONSULTATION: 12/08/16 INDICATION FOR CONSULTATION: Coronary artery disease, shortness of breath. HISTORY OF PRESENT ILLNESS: The patient is a 66-year-old gentleman with an extensive history of coronary artery disease, who was brought to the hospital because of shortness of breath. The patient is from [place]. He is up visiting his daughter. The patient states that he uses CPAP at night; however, the previous morning, he awoke feeling very short of breath despite having a CPAP on. He woke up and sat at the edge of the bed. He took his CPAP off and his shortness of breath continued. He denied any angina. He denied any nausea or vomiting. He denied any lightheadedness. The patient's shortness of breath continued and he decided to come to the emergency room. The patient was admitted to the hospital because of shortness of breath and his extensive cardiac history. The patient states that he has had this chronic cough, bronchitis for about a month. He says he usually gets it in the late summer because of allergies and ragweed. It is less prominent in [place]; however, [facility] and [place], he gets this dry non-productive cough. The patient denied any symptoms before his episode of shortness of breath, which awoke him in the morning. The patient presented to the emergency room. He was given IV Lasix. He did have a mildly elevated troponin level. He was admitted to the hospital. PAST MEDICAL HISTORY: Significant for diabetes, hypertension, CPAP for obstructive sleep apnea, coronary artery disease, the patient has had bypass surgery x2, his first was in 1997, his second was in 2007 at [facility] in [facility]. OUTPATIENT MEDICATIONS: [place]ckin[place]-3 fatty acids 900 mg a day, Tresiba 58 units subcutaneous, insulin as directed, Trulicity as directed, aspirin 325 a day, metformin 1000 mg b.i.d., Zetia 10 mg a day, Plavix 75 mg a day, guaifenesin as needed, atorvastatin 40 mg a day, potassium 20 mEq a day, amlodipine 10 mg a day , losartan 100 mg a day, Lasix 40 mg a day, Coreg 25 mg 3 times a day. ALLERGIES: No known drug allergies. SOCIAL HISTORY: He is retired. He denies tobacco or alcohol use. FAMILY HISTORY: No family history of early coronary artery disease. PHYSICAL EXAMINATION: Height is 5 feet 9 inches, weight 276 pounds. Temperature 98.9, heart rate is 76, blood pressure 121/62, respiratory rate is 20, oxygen saturation 96% on room air. Sclerae anicteric. Oropharynx is pink without erythema. Carotids are 2+ without bruits. JVD is normal. Thyroid is normal. Cardiac Exam: Distant heart sounds, S1, S2 without any obvious murmurs , rubs, or gallops. Lungs are clear to auscultation. There are no rhonchi or wheezes. There is no dullness to percussion. Abdomen is obese, soft, nontender , and nondistended with normoactive bowel sounds. Extremities show no edema. He has diminished pulses in his dorsalis pedis. His popliteal pulses are normal. The patient is awake, alert, and oriented. He moves all 4 extremities equally. DIAGNOSTIC STUDIES/LABORATORY DATA: White count 13, hemoglobin 12, hematocrit 38, platelet count 206. Chemistry is within normal limits. BUN 27, creatinine 1.1. Initial troponin 0.1, second troponin 0.13, peak troponin 0.19. TSH is normal. Echocardiogram demonstrated normal LV size with mildly decreased LV systolic function, ejection fraction of 45%. He does have anterior and anteroseptal hypokinesis, mild aortic regurgitation, moderate mitral regurgitation, mild tricuspid regurgitation, no evidence of a pericardial effusion. EKG demonstrated normal sinus rhythm with second degree heart block type I, old anterior wall PA. IMPRESSION: This is a 66-year-old gentleman with extensive cardiac history. He was admitted to the hospital with shortness of breath and mildly elevated troponin levels. The patient states that his symptoms of angina when he had his bypass surgery in 2007 was shortness of breath. The patient is already on maximum medical therapy. It is my recommendation that the patient undergo a chemical nuclear stress test for further risk stratification. Further recommendations pending the results of the stress test. [id number]/[facility] #: [id number] [facility]
[2016-12-08] MEDS: Carvedilol TAB* 6.25 MG PO SCH (15:22)
[2016-12-08] MEDS: Insulin GLARGINE(*) 1 UNITS UNIT SUBCUT SCH (15:23)
[2016-12-08] MEDS: Atorvastatin* 40 MG TAB PO SCH (17:32)
[2016-12-08] MEDS: Clopidogrel TAB* 75 MG PO SCH (17:32)
[2016-12-08] MEDS: guanFACINE TAB* 1 MG PO SCH (21:20)
[2016-12-08] MEDS: Aspirin TAB* 325 MG PO SCH (21:20)
[2016-12-09] MEDS: Heparin VIAL(*) 5000 UNITS/ML VIAL (FIVE THOUSAND) SUBCUT SCH ×3 (05:24→22:01)
[2016-12-09] MEDS ORDERED: Dulaglutide (NF) 1.5 MG/0.5 ML SYRINGE SUBCUT SCH (09:00)
[2016-12-09] MEDS: Insulin LISPRO* 1 UNITS UNIT SUBCUT SCH ×6 (10:24→18:11)
[2016-12-09] MEDS: OMEGA-3 FATTY ACIDS (NF) 1,000 MG CAP PO SCH (10:24)
[2016-12-09] MEDS: Losartan TAB* 25 MG PO SCH (10:41)
[2016-12-09] MEDS: Ezetimibe TAB* 10 MG PO SCH (10:41)
[2016-12-09] MEDS: Potassium Chlor TAB* 10 MEQ TAB.ER PO SCH (10:41)
[2016-12-09] MEDS: amLODIPine TAB* 5 MG PO SCH (10:42)
[2016-12-09] MEDS: Furosemide TAB* 40 MG PO SCH (10:42)
[2016-12-09] MEDS: Carvedilol TAB* 25 MG PO SCH ×2 (10:58→20:33)
--- NOTE | 2016-12-09 12:44 | RAD ---
Indication: Troponin elevation, shortness of breath. Myocardial perfusion scan was performed utilizing 25.3 mCi of technetium 99m tetrofosmin during pharmacological stress. 26.3 mCi of technetium 99m tetrofosmin was injected for the rest portion of the study. Mild cardiomegaly is noted. In the inferior lateral wall, there may be some photopenia at the base of the heart which appears to reperfuse on the rest images. This may represent a small amount of inferolateral reversible change. The ejection fraction at stress is 50% and at rest is 47%. Evaluation of wall motion demonstrates no focal wall motion abnormality. IMPRESSION: There may be a small area of inferolateral reversible change. Normal ejection fraction of 50% at stress. ASSESSMENT: Low risk Based on imaging criteria from ACC/AHA 2002 Guideline Update for the Management of Patients With Chronic Stable Angina Table 23. Noninvasive Risk Stratification. Reference.
[2016-12-09] MEDS: Insulin GLARGINE(*) 1 UNITS UNIT SUBCUT SCH (13:13)
[2016-12-09] MEDS: Carvedilol TAB* 6.25 MG PO SCH (13:19)
--- NOTE | 2016-12-09 13:46 | PN ---
Subjective Date of Service: 12/09/16 Interval History: No more dyspneic spells, no new c/o. Objective Active Medications: Amlodipine Besylate (Norvasc Tab*) 10 mg PO DAILY [facility] Last Admin: 12/09/16 10:42 Dose: 10 mg Aspirin (Aspirin Tab*) 325 mg PO BEDTIME [facility] Last Admin: 12/08/16 21:20 Dose: 325 mg Atorvastatin Calcium (Lipitor*) 40 mg PO QPM [facility] Last Admin: 12/08/16 17:32 Dose: 40 mg Carvedilol (Coreg Tab*) 25 mg PO BID [facility] Last Admin: 12/09/16 10:58 Dose: Not Given Carvedilol (Coreg Tab*) 12.5 mg PO 1400 [facility] Last Admin: 12/09/16 13:19 Dose: 12.5 mg Clopidogrel Bisulfate (Plavix Tab*) 75 mg PO QPM [facility] Last Admin: 12/08/16 17:32 Dose: 75 mg Dextrose (D50w Syringe 50 Ml*) 12.5 gm IV PUSH .FOR FS < 60 - SS PRN PRN Reason: FS < 60 Dulaglutide (Trulicity (Nf)) 1.5 mg SUBCUT We@0900 [facility] Last Admin: 12/09/16 10:44 Dose: 1.5 mg Ezetimibe (Zetia Tab*) 10 mg PO DAILY [facility] Last Admin: 12/09/16 10:41 Dose: 10 mg Fish Oil (Fish Oil (Nf)) 900 mg PO DAILY [facility] PRN Reason: Protocol Last Admin: 12/09/16 10:24 Dose: Not Given Furosemide (Lasix Tab*) 40 mg PO DAILY [facility] Last Admin: 12/09/16 10:42 Dose: 40 mg Guanfacine HCl (Tenex Tab*) 2 mg PO BEDTIME [facility] Last Admin: 12/08/16 21:20 Dose: 2 mg Heparin Sodium (Porcine) (Heparin Vial(*)) 5,000 units SUBCUT Q8HR [facility] Last Admin: 12/09/16 13:16 Dose: 5,000 units Insulin Glargine (Lantus(*)) 35 units SUBCUT Q24H [facility] Last Admin: 12/09/16 13:13 Dose: 35 units Insulin Human Lispro (Humalog*) 0 - 15 units SUBCUT AC [facility] PRN Reason: Protocol Last Admin: 12/09/16 13:14 Dose: 6 unit Insulin Human Lispro (Humalog*) 0 units SUBCUT [facility] PRN Reason: Protocol Last Admin: 12/09/16 13:14 Dose: 6 units Losartan Potassium (Cozaar Tab*) 100 mg PO DAILY [facility] Last Admin: 12/09/16 10:41 Dose: 100 mg Potassium Chloride (Klor Con Er Tab*) 20 meq PO DAILY [facility] Last Admin: 12/09/16 10:41 Dose: 20 meq Vital Signs 12/08/16 12/08/16 12/08/16 15:29 20:08 21:15 Temperature 97.4 F Pulse Rate 68 70 Respiratory 18 16 16 Rate Blood Pressure 134/56 133/64 (mmHg) O2 Sat by Pulse 95 98 Oximetry 12/08/16 12/09/16 12/09/16 23:05 03:04 07:07 Temperature 97.2 F 97.4 F 97.6 F Pulse Rate 64 61 61 Respiratory 20 20 18 Rate Blood Pressure 107/60 112/56 121/61 (mmHg) O2 Sat by Pulse 98 95 99 Oximetry 12/09/16 12/09/16 07:42 11:17 Temperature 97.5 F Pulse Rate 68 Respiratory 18 16 Rate Blood Pressure 133/64 (mmHg) O2 Sat by Pulse 99 Oximetry Oxygen Devices in Use Now: None Appearance: Alert, in a chair. In good spirits. Looks comfortable. Eyes: No Scleral Icterus Extremities: No Clubbing, Cyanosis, - - support hose in placae. Skin: No Rash or Ulcers, No Nodules or Sclerosis, - Neurological: Alert and Oriented x 3, NL Sensation Result Diagrams: 12/07/16 05:10 12/07/16 05:10 Additional Lab and Data: Lab Results 12/06/16 12/06/16 12/06/16 Range/Units 14:55 14:55 14:55 WBC 12.7 H (3.5-10.8) 10^3/ul RBC 4.35 (4.0-5.4) 10^6/ul Hgb 12.3 L (14.0-18.0) g/dl Hct 39 L (42-52) % MCV 89 (80-94) fL MCH 28 (27-31) pg MCHC 32 (31-36) g/dl RDW 16 H (10.5-15) % Plt Count 227 (150-450) 10^3/ul MPV 8 (7.4-10.4) um3 Neut % (Auto) 74.1 (38-83) % Lymph % (Auto) 15.8 L (25-47) % [place] % (Auto) 8.1 (1-9) % Eos % (Auto) 1.3 (0-6) % Baso % (Auto) 0.7 (0-2) % Absolute Neuts (auto) 9.4 H (1.5-7.7) 10^3/ul Absolute Lymphs (auto) 2.0 (1.0-4.8) 10^3/ul Absolute Monos (auto) 1.0 H (0-0.8) 10^3/ul Absolute Eos (auto) 0.2 (0-0.6) 10^3/ul Absolute Basos (auto) 0.1 (0-0.2) 10^3/ul Absolute Nucleated RBC 0.01 10^3/ul Nucleated RBC % 0.1 Sodium 139 (133-145) mmol/L Potassium 4.2 (3.5-5.0) mmol/L Chloride 103 (101-111) mmol/L Carbon Dioxide 29 (22-32) mmol/L Anion Gap 7 (2-11) mmol/L BUN 28 H (6-24) mg/dL Creatinine 1.22 H (0.67-1.17) mg/dL Est GFR ( Amer) 76.4 (>60) Est GFR (Non-Af Amer) 59.4 (>60) BUN/Creatinine Ratio 23.0 H (8-20) Glucose 185 H (70-100) mg/dL Lactic Acid 1.6 (0.5-2.0) mmol/L Calcium 9.2 (8.6-10.3) mg/dL Total Bilirubin 0.30 (0.2-1.0) mg/dL AST 14 (13-39) U/L ALT 16 (7-52) U/L Alkaline Phosphatase 71 (34-104) U/L Troponin I 0.06 H* (<0.04) ng/mL Total Protein 6.6 (6.4-8.9) g/dL Albumin 3.4 (3.2-5.2) g/dL Globulin 3.2 (2-4) g/dL Albumin/Globulin Ratio 1.1 (1-3) Assess/Plan/Problems-Billing Assessment: - Patient Problems (1) Elevated troponin Current Visit: Yes Status: Acute Code(s): R74.8 - ABNORMAL LEVELS OF OTHER SERUM ENZYMES SNOMED Code(s): 522534220 Comment: Discussed with . ? anginal equivalent. (2) Ischemic cardiomyopathy Current Visit: Yes Status: Acute Code(s): I25.5 - ISCHEMIC CARDIOMYOPATHY SNOMED Code(s): 407156891 Comment: LVEF 45-50% on echo 12/06/16. Patient has not seen a theater usher for many years. Note BNP 853 on 12/06/16. Continue clopidogrel, ASA, carvedilol , statin, furosemide. NTG patch ordered by Dr. Singh. (3) Diabetes Current Visit: Yes Status: Acute Code(s): E11.9 - TYPE 2 DIABETES MELLITUS WITHOUT COMPLICATIONS SNOMED Code(s): 15137393 Comment: Continue glargine insulin, Lispro while in the hospital. Keep Glargne at 35 as may be NPO for cardiac cath 12/10. Pt takes 58 U long-acting inuslin in AM at home. (4) HTN (hypertension) Current Visit: Yes Status: Acute Code(s): I10 - ESSENTIAL (PRIMARY) HYPERTENSION SNOMED Code(s): 79526551 Comment: Continue losartan, amlodipine, furosemide, carvedilol.
--- NOTE | 2016-12-09 13:53 | PN ---
Subjective Date of Service: 12/09/16 - CC: SOB Interval History: Ambulating in halls and breathing is better. He typically is more active than is out of the hospital. The patient feels his bronchitis he attributes to allergies/goldenrod is improving. Medications Active Medications: Amlodipine Besylate (Norvasc Tab*) 10 mg PO DAILY [facility] Last Admin: 12/09/16 10:42 Dose: 10 mg Aspirin (Aspirin Tab*) 325 mg PO BEDTIME [facility] Last Admin: 12/08/16 21:20 Dose: 325 mg Atorvastatin Calcium (Lipitor*) 40 mg PO QPM [facility] Last Admin: 12/08/16 17:32 Dose: 40 mg Carvedilol (Coreg Tab*) 25 mg PO BID [facility] Last Admin: 12/09/16 10:58 Dose: Not Given Carvedilol (Coreg Tab*) 12.5 mg PO 1400 [facility] Last Admin: 12/09/16 13:19 Dose: 12.5 mg Clopidogrel Bisulfate (Plavix Tab*) 75 mg PO QPM [facility] Last Admin: 12/08/16 17:32 Dose: 75 mg Dextrose (D50w Syringe 50 Ml*) 12.5 gm IV PUSH .FOR FS < 60 - SS PRN PRN Reason: FS < 60 Dulaglutide (Trulicity (Nf)) 1.5 mg SUBCUT We@0900 [facility] Last Admin: 12/09/16 10:44 Dose: 1.5 mg Ezetimibe (Zetia Tab*) 10 mg PO DAILY [facility] Last Admin: 12/09/16 10:41 Dose: 10 mg Fish Oil (Fish Oil (Nf)) 900 mg PO DAILY [facility] PRN Reason: Protocol Last Admin: 12/09/16 10:24 Dose: Not Given Furosemide (Lasix Tab*) 40 mg PO DAILY [facility] Last Admin: 12/09/16 10:42 Dose: 40 mg Guanfacine HCl (Tenex Tab*) 2 mg PO BEDTIME [facility] Last Admin: 12/08/16 21:20 Dose: 2 mg Heparin Sodium (Porcine) (Heparin Vial(*)) 5,000 units SUBCUT Q8HR [facility] Last Admin: 12/09/16 13:16 Dose: 5,000 units Insulin Glargine (Lantus(*)) 35 units SUBCUT Q24H [facility] Last Admin: 12/09/16 13:13 Dose: 35 units Insulin Human Lispro (Humalog*) 0 - 15 units SUBCUT AC [facility] PRN Reason: Protocol Last Admin: 12/09/16 13:14 Dose: 6 unit Insulin Human Lispro (Humalog*) 0 units SUBCUT AC [facility] PRN Reason: Protocol Last Admin: 12/09/16 13:14 Dose: 6 units Losartan Potassium (Cozaar Tab*) 100 mg PO DAILY [facility] Last Admin: 12/09/16 10:41 Dose: 100 mg Potassium Chloride (Klor Con Er Tab*) 20 meq PO DAILY [facility] Last Admin: 12/09/16 10:41 Dose: 20 meq Objective Vital Signs: Temp Pulse Resp BP Pulse Ox 97.5 F 68 16 133/64 99 12/09/16 11:17 12/09/16 11:17 12/09/16 11:17 12/09/16 11:17 12/09/16 11:17 Oxygen Devices in Use Now: None Appearance: Morbidly obese, seated, in no acute distress. Eyes: No Scleral Icterus, PERRLA Ears/Nose/Mouth/Throat: Clear Oropharnyx, Mucous Membranes Moist Neck: - - thick/obese, no appreciable bruits, thyromegaly, no lymphadenopathy. Respiratory: Symmetrical Chest Expansion and Respiratory Effort, - - wheezing and rhonchi, but good air movement. Cardiovascular: NL Sounds; No Murmurs; No JVD, RRR Abdominal: - - morbidly obese, firm, active bowel sounds. Extremities: No Edema - compression stockings are on. Skin: No Rash or Ulcers Neurological: Alert and Oriented x 3 Lines/Tubes/Other Access: Clean, Dry and Intact Peripheral IV Laboratory Results: Total Bilirubin 0.30 mg/dL (0.2-1.0) 12/06/16 14:55 AST 14 U/L (13-39) 12/06/16 14:55 ALT 16 U/L (7-52) 12/06/16 14:55 Alkaline Phosphatase 71 U/L (34-104) 12/06/16 14:55 B-Natriuretic Peptide 853 pg/mL (-100) H 12/06/16 14:55 Total Protein 6.6 g/dL (6.4-8.9) 12/06/16 14:55 Albumin 3.4 g/dL (3.2-5.2) 12/06/16 14:55 Globulin 3.2 g/dL (2-4) 12/06/16 14:55 Albumin/Globulin Ratio 1.1 (1-3) 12/06/16 14:55 Triglycerides 122 mg/dL 12/07/16 05:10 Cholesterol 101 mg/dL 12/07/16 05:10 LDL Cholesterol 46 mg/dL 12/07/16 05:10 HDL Cholesterol 30.8 mg/dL 12/07/16 05:10 TSH 2.84 mcIU/mL (0.34-5.60) 12/06/16 14:55 Abnormal Lab Results 12/08/16 12/09/16 12/09/16 16:40 07:30 11:28 POC Glucose (mg/dL) 161 H 153 H 211 H Trops: Initial 0.06, Peak, 0.19. Diagnostic Imaging: Nuclear imaging: EF 50%, small area of reversable ischemia at the base of the inferior lateral wall. EKG Data: NSR, 73bpm, normal ST's, resolution of Wenkebach. Assessment/Plan 66 yo male with two bypass surgeries, most recent 2007. CAD risks of DM, morbid obese, chol, HTN, JORDAN. Initial presentation CP sleeping. Presentation for second CABG was VILLALPANDO. The patient now presents with VILLALPANDO after long day shopping in [facility] and awoke SOB. -Wenkebach on admission, resolved backing off on Coreg. -Usually very active with chores for daughter. -Recent allergies/bronchitis Mild elevation in troponins, small area of reversible ischemia, high risk patient. Medical management appears optimized, some improvement with diuresis. Discussed with interventional cardiiologist: He would like to review last cath report and images prior to deciding if proceeding to cath would be of benefit. In the interim, Dr. Lewis recommends nitrates. NTG patch 0.4 mg on days to be ordered.
[2016-12-09] MEDS: Nitroglycerin 0.2 MG/HR PATCH* (5 MG) TRANSDERM SCH (18:06)
[2016-12-09] MEDS: Atorvastatin* 40 MG TAB PO SCH (18:13)
[2016-12-09] MEDS: Clopidogrel TAB* 75 MG PO SCH (18:13)
[2016-12-09] MEDS: guanFACINE TAB* 1 MG PO SCH (20:34)
[2016-12-09] MEDS: Aspirin TAB* 325 MG PO SCH (20:34)
[2016-12-09] MEDS ORDERED: Nitro Patch/OINT Remove PATCH OFF SCH (21:00)
[2016-12-10] MEDS: Heparin VIAL(*) 5000 UNITS/ML VIAL (FIVE THOUSAND) SUBCUT SCH ×2 (05:45→13:34)
[2016-12-10] MEDS: Nitroglycerin 0.2 MG/HR PATCH* (5 MG) TRANSDERM SCH (08:33)
[2016-12-10] MEDS: Losartan TAB* 25 MG PO SCH (08:34)
[2016-12-10] MEDS: Furosemide TAB* 40 MG PO SCH (08:34)
[2016-12-10] MEDS: Ezetimibe TAB* 10 MG PO SCH (08:34)
[2016-12-10] MEDS: Carvedilol TAB* 25 MG PO SCH (08:34)
[2016-12-10] MEDS: OMEGA-3 FATTY ACIDS (NF) 1,000 MG CAP PO SCH ×2 (08:34→08:42)
[2016-12-10] MEDS: amLODIPine TAB* 5 MG PO SCH (08:34)
[2016-12-10] MEDS: Insulin LISPRO* 1 UNITS UNIT SUBCUT SCH ×4 (08:48→13:29)
[2016-12-10] MEDS: Potassium Chlor TAB* 10 MEQ TAB.ER PO SCH (08:50)
[2016-12-10] MEDS ORDERED: Losartan TAB* 25 MG PO SCH ×2 (11:16→11:27)
[2016-12-10] MEDS ORDERED: amLODIPine TAB* 5 MG PO SCH ×2 (11:27)
[2016-12-10 11:50] VITALS: BP 95/53
--- NOTE | 2016-12-10 11:55 | PN ---
Progress Note - Progress Note Date of Service: 12/10/16 Note: Time spent on discharge 50 minutes.
[2016-12-10] MEDS: Carvedilol TAB* 6.25 MG PO SCH (13:30)
[2016-12-10] MEDS: Insulin GLARGINE(*) 1 UNITS UNIT SUBCUT SCH (14:22)
--- NOTE | 2016-12-11 04:04 | DS ---
CC: Bryan Morillo DO * DISCHARGE SUMMARY: DATE OF ADMISSION: 12/06/16 DATE OF DISCHARGE: 12/10/16 HISTORY OF PRESENT ILLNESS: This 66-year-old man was admitted with a complaint of shortness of breath. He had an episode upon awakening at 6 am while he was on his CPAP machine. His shortness of breath persisted through the morning and gradually resolved. In the emergency room, he had some second degree Mobitz type 1 heart block. His troponins in the emergency room was 0.06, peaked at 0.19 and then fell to 0.17. He had no further shortness of breath in the hospital. He brought in the CPAP machine which he uses completely in compliance with instructions. He had no further symptoms of any kind. He underwent a nuclear stress test. There was a question of a small area of inferolateral reversible change, ejection fraction was 50% of stress on the nuclear images. His echocardiogram done on 12/06/16 showed an ejection fraction of 45% to 50%. We sent for records from his left cardiac catheterization in 2007. Unfortunately, they are in storage and the facility where he had the catheterization will not be able to retrieve them until 12/14/16 at which time, they should fax them to the hospital and/or the cardiology office. The patient was concerned about his blood pressure, was lower than he excepted, although he was completely asymptomatic from this. He was started on a nitroglycerin patch, his carvedilol was decreased slightly with a middle dose being decreased from 25 to 12.5 mg. His amlodipine was decreased from 10 mg to 2.5 mg. FINAL DIAGNOSES: 1. Coronary artery disease with elevated troponins and abnormal stress test. 2. Ischemic cardiomyopathy with cardiac cath x2 in the past and CABG. 3. Diabetes. 4. Hypertension. 5. Obesity. DISCHARGE MEDICATIONS: 1. Carvedilol 25 mg b.i.d. plus 12.5 mg daily at 1400. 2. Nitroglycerin 0.2 mg per hour on in the morning and off in the evening. 3. Amlodipine 2.5 mg daily. 4. Tresiba 58 units subcu daily. 5. NovoLog FlexPen as prescribed. 6. Empagliflozin or Jardiance 25 mg daily. 7. Dulaglutide 1.5 mg subcu as prescribed. 8. Aspirin 325 mg every evening. 9. Metformin 1000 mg b.i.d. 10. Ezetimibe 10 mg daily. 11. Clopidogrel 75 mg h.s. 12. Guanfacine 2 mg h.s. 13. Atorvastatin 40 mg h.s. 14. Potassium chloride 20 mEq by daily. 15. Losartan 100 mg daily. 16. [place] 3 fatty acid 900 mg daily. 17. Furosemide 40 mg daily. [id number]/[facility] #: [id number] [facility]
== END 2016-12-10 15:00 | disposition home or self-care (01) | DRG 310 ==
LOC: ED 13:50 → MEDTELE 17:04 → OBSVTOIN 12-07 15:00
PROVIDERS: ADMIT Hospitalist; ATTEND Internal Medicine
DX: I44.1 Atrioventricular block, second degree (principal); E66.01 Morbid (severe) obesity due to excess calories; Z95.1 Presence of aortocoronary bypass graft; I25.10 Atherosclerotic heart disease of native coronary artery without angina pectoris; I10 Essential (primary) hypertension; G47.33 Obstructive sleep apnea (adult) (pediatric); E11.9 Type 2 diabetes mellitus without complications; J30.1 Allergic rhinitis due to pollen; R74.8 Abnormal levels of other serum enzymes; I25.5 Ischemic cardiomyopathy; I08.3 Combined rheumatic disorders of mitral, aortic and tricuspid valves; I25.2 Old myocardial infarction; Z79.84 Long term (current) use of oral hypoglycemic drugs; Z82.49 Family history of ischemic heart disease and other diseases of the circulatory system; Z72.89 Other problems related to lifestyle; Z68.39 Body mass index [BMI] 39.0-39.9, adult; Z79.02 Long term (current) use of antithrombotics/antiplatelets
CPT/HCPCS: 36415; 71020; 78452; 80048; 80053; 80061; 83605; 83880; 84443; 84484; 85025; 87040; 93005; 93017; 93306; A9270-GY; A9502; C8929; G0378; J1644; J1940; J2785